=== PATIENT | male | born 1960 ===

== ENCOUNTER 2021-06-09 09:37 | Outpatient (CLI) | payer OTHER | END 2021-06-09 17:00 | disposition home or self-care (01) | LOC: PPH VACUNA 09:37 | PROVIDERS: ATTEND Emergency Medicine Pediatric Emergency Medicine | DX: Z23 Encounter for immunization (principal) ==

== ENCOUNTER 2021-12-22 09:00 | Outpatient (CLI) | payer OTHER | END 2021-12-22 09:15 | disposition home or self-care (01) | LOC: PPH VACUNA 09:00 | PROVIDERS: ATTEND Emergency Medicine Pediatric Emergency Medicine | DX: Z23 Encounter for immunization (principal) ==

== ENCOUNTER 2022-06-22 13:58 | Outpatient (CLI) | payer OTHER | END 2022-06-22 14:08 | disposition home or self-care (01) | LOC: PPH VACUNA 13:58 | PROVIDERS: ATTEND Emergency Medicine Pediatric Emergency Medicine | DX: Z23 Encounter for immunization (principal) ==